=== PATIENT | female | born 1990 | race Caucasian/White ===

== ENCOUNTER 2017-10-23 18:44 | Emergency (ER) | payer OTHER, MEDICAID ==
[~2017-10-23] VITALS: Ht 175.3 cm; Wt 63.5 kg
[~2017-10-23 18:44] MED LIST: CARAFATE1 GM/10 ML PO; CELEXA10 MG PO; HYDROCODONE-AP1 EAC6 PO; ONDANSETRON HCL4 M2 PO; PRILOSEC 20 MG20 MG PO; PROTONIX40 M1 PO; TRINATE TABLET1 TAB PO; ZOFRAN ODT4 MG PO
[2017-10-23] MEDS ORDERED: MIRENA1 EACH CERVICAL (19:40)
[2017-10-23 20:11] LABS: URINE BILIRUBIN NEGATIVE (Negative); URINE BLOOD 3+ (Negative); URINE CLARITY CLOUDY; URINE COLOR YELLOW; URINE GLUCOSE-RANDOM NEGATIVE (Negative); URINE KETONES TRACE (Negative); URINE LEUKOCYTES 3+ (Negative); URINE NITRITE POSITIVE (Negative); URINE PROTEIN 2+ (Negative); URINE SPECIFIC GRAVITY 1.025 (1.005-1.030); URINE UROBILINOGEN 0.2 E.U./dl (0.2-1.0)
[2017-10-23 20:21] LABS: SQUAMOUS >10 Many /LPF (0-3); URINE WBC >25 Many /HPF (0-5)
[2017-10-23 20:22] LABS: CASTS None Seen /LPF (None Seen); CRYSTALS None Seen /LPF (None Seen); WBC CLUMPS Few (None Seen)
[2017-10-23 20:24] LABS: MUCUS 0-3 Light strn/LPF (None Seen)
[2017-10-23] MEDS ORDERED: BACTRIM DS TAB1 EACH PO (20:36)
[2017-10-23 21:05] VITALS: BP 122/69
== END 2017-10-23 21:05 | disposition home or self-care (01) ==
LOC: M.ERS 18:44
PROVIDERS: Nurse Practitioner Family
DX: N39.0 Urinary tract infection, site not specified (principal); R31.9 Hematuria, unspecified; F41.9 Anxiety disorder, unspecified; F10.99 Alcohol use, unspecified with unspecified alcohol-induced disorder; Z90.49 Acquired absence of other specified parts of digestive tract

== ENCOUNTER → 2017-10-27 | Outpatient (CLI) | payer OTHER, MEDICAID ==
[~2017-10-27] MED LIST changes: +BACTRIM DS TAB1 EACH PO; +CIPRO250 M2 PO; +IBUPROFEN 800800 MG PO; +KEFLEX500 M1 PO; +MIRENA1 EACH CERVICAL; +NORCO 5-325 TA1 EACH PO; +PYRIDIUM200 MG PO
== END ==
LOC: M.MRI 10-17 11:30
DX: K80.50 Calculus of bile duct without cholangitis or cholecystitis without obstruction (principal); Z90.49 Acquired absence of other specified parts of digestive tract

== ENCOUNTER 2017-10-29 03:20 | Emergency (ER) | payer OTHER, MEDICAID ==
[~2017-10-29] VITALS: Ht 175.3 cm; Wt 63.5 kg
[~2017-10-29 03:20] MED LIST changes: -CIPRO250 M2 PO; -IBUPROFEN 800800 MG PO; -KEFLEX500 M1 PO; -NORCO 5-325 TA1 EACH PO; -PYRIDIUM200 MG PO
[2017-10-29 03:41] LABS: URINE BILIRUBIN NEGATIVE (Negative); URINE BLOOD 3+ (Negative); URINE CLARITY CLEAR; URINE COLOR DARK YELLOW; URINE GLUCOSE-RANDOM NEGATIVE (Negative); URINE KETONES NEGATIVE (Negative); URINE PROTEIN 2+ (Negative); URINE SPECIFIC GRAVITY >= 1.030 (1.005-1.030); URINE UROBILINOGEN 0.2 E.U./dl (0.2-1.0)
[2017-10-29 03:48] LABS: URINE LEUKOCYTES-REFLEX 3+ (Negative); URINE NITRITE-REFLEX POSITIVE (Negative)
[2017-10-29 04:08] LABS: ABSOLUTE BASOPHILS 0.1 thou/uL (0.0-0.2); ABSOLUTE EOSINOPHILS 0.3 thou/uL (0.0-0.7); MCH 30.1 pg (26.0-34.0); MPV 7.9 fl. (7.2-11.1); NUCLEATED RBCS 0 /100WBC; RDW-CV 14.2 % (10.5-14.5); WBC 10.4 thou/uL (4.0-11.0)
[2017-10-29 04:10] LABS: ABSOLUTE LYMPHOCYTES 2.5 thou/uL (0.8-5.3); ABSOLUTE NEUTROPHILS 6.6 thou/uL (1.6-8.1); BASOPHILS 0.9 %; EOSINOPHILS 2.5 %; HEMOGLOBIN 12.4 gm/dL (12.0-15.0); LYMPHOCYTES 23.7 %; MCHC 33.4 g/dL (28.0-37.0); MCV 90.1 fL (80.0-100.0); MONOCYTES 9.2 %; PLATELET COUNT* 330 thou/uL (150-400); POLYS 63.7 %; RBC 4.11 mil/uL (4.20-5.00)
[2017-10-29 04:12] LABS: BACTERIA-REFLEX >30 Many /HPF (None Seen); CASTS None Seen /LPF (None Seen); CRYSTALS None Seen /LPF (None Seen); MUCUS 4-6 Moderate strn/LPF (None Seen); SQUAMOUS 0-3 Few /LPF (0-3); URINE RBC >20 Many /HPF (0-2); URINE WBC-REFLEX >25 Many /HPF (0-5); WBC CLUMPS Moderate (None Seen)
[2017-10-29 04:20] LABS: CALCIUM 8.6 mg/dL (8.5-10.1); CREATININE 0.9 mg/dL (0.6-1.3); POTASSIUM 3.8 mmol/L (3.5-5.1)
[2017-10-29 04:24] LABS: ALBUMIN 3.5 g/dL (3.4-5.0); TOTAL BILIRUBIN 0.2 mg/dL (<0.1-1.0); TOTAL PROTEIN 7.3 g/dL (6.4-8.2)
[2017-10-29] MEDS ORDERED: ZOFRAN ODT4 MG PO (06:13)
[2017-10-29] MEDS ORDERED: NORCO 5-325 TA1 EACH PO (06:13)
[2017-10-29] MEDS ORDERED: KEFLEX500 M1 PO (06:13)
[2017-10-29 06:37] VITALS: BP 118/56
== END 2017-10-29 06:46 | disposition home or self-care (01) ==
LOC: M.ERS 03:20
PROVIDERS: Emergency Medicine Emergency Medical Services
DX: N12 Tubulo-interstitial nephritis, not specified as acute or chronic (principal); F41.9 Anxiety disorder, unspecified; Z90.49 Acquired absence of other specified parts of digestive tract

== ENCOUNTER 2018-02-09 19:40 | Emergency (ER) | payer OTHER, MEDICAID ==
[~2018-02-09] VITALS: Ht 175.3 cm; Wt 63.5 kg
[~2018-02-09 19:40] MED LIST changes: +KEFLEX500 M1 PO; +NORCO 5-325 TA1 EACH PO
[2018-02-09] MEDS ORDERED: IBUPROFEN 800800 MG PO (20:43)
[2018-02-09 21:05] VITALS: BP 136/76
== END 2018-02-09 21:06 | disposition home or self-care (01) ==
LOC: M.ERS 19:40
DX: S63.591A Other specified sprain of right wrist, initial encounter (principal); W01.0XXA Fall on same level from slipping, tripping and stumbling without subsequent striking against object, initial encounter; Y93.89 Activity, other specified; Y92.89 Other specified places as the place of occurrence of the external cause; Y99.8 Other external cause status; F41.9 Anxiety disorder, unspecified

== ENCOUNTER 2018-02-23 16:40 | Emergency (ER) | payer OTHER, MEDICAID ==
[~2018-02-23] VITALS: Ht 175.3 cm; Wt 63.5 kg
[~2018-02-23 16:40] MED LIST changes: +IBUPROFEN 800800 MG PO
[2018-02-23 18:00] LABS: URINE BILIRUBIN NEGATIVE (Negative); URINE BLOOD NEGATIVE (Negative); URINE CLARITY CLEAR; URINE COLOR YELLOW; URINE GLUCOSE-RANDOM NEGATIVE (Negative); URINE KETONES NEGATIVE (Negative); URINE LEUKOCYTES-REFLEX 1+ (Negative); URINE NITRITE-REFLEX NEGATIVE (Negative); URINE PROTEIN NEGATIVE (Negative); URINE UROBILINOGEN 0.2 E.U./dl (0.2-1.0)
[2018-02-23 18:07] LABS: SQUAMOUS 4-10 Moderate /LPF (0-3)
[2018-02-23 18:08] LABS: BACTERIA-REFLEX 1-9 Few /HPF (None Seen); CASTS None Seen /LPF (None Seen); CRYSTALS None Seen /LPF (None Seen); URINE RBC None Seen /HPF (0-2); URINE WBC-REFLEX 0-5 Rare /HPF (0-5)
[2018-02-23 18:09] LABS: ABSOLUTE BASOPHILS 0.1 thou/uL (0.0-0.2); ABSOLUTE EOSINOPHILS 0.1 thou/uL (0.0-0.7); ABSOLUTE LYMPHOCYTES 1.8 thou/uL (0.8-5.3); ABSOLUTE MONOCYTES 0.5 thou/uL (0.0-1.2); ABSOLUTE NEUTROPHILS 3.6 thou/uL (1.6-8.1); BASOPHILS 1.3 %; EOSINOPHILS 2.2 %; HEMATOCRIT 38.6 % (37.0-47.0); MCH 29.9 pg (26.0-34.0); MCHC 33.6 g/dL (28.0-37.0); MCV 88.8 fL (80.0-100.0); MPV 8.2 fl. (7.2-11.1); NUCLEATED RBCS 0 /100WBC; PLATELET COUNT* 315 thou/uL (150-400); POLYS 58.5 %; RBC 4.35 mil/uL (4.20-5.00); RDW-CV 13.8 % (10.5-14.5); WBC 6.1 thou/uL (4.0-11.0)
[2018-02-23 18:16] LABS: CALCIUM 8.7 mg/dL (8.5-10.1); CREATININE 0.9 mg/dL (0.6-1.3)
[2018-02-23 18:21] LABS: ALBUMIN 3.7 g/dL (3.4-5.0); TOTAL BILIRUBIN 0.5 mg/dL (<0.1-1.0); TOTAL PROTEIN 7.6 g/dL (6.4-8.2)
[2018-02-23] MEDS ORDERED: CIPRO250 M2 PO (19:18)
[2018-02-23] MEDS ORDERED: PYRIDIUM200 MG PO (19:18)
[2018-02-23 20:00] VITALS: BP 121/71
== END 2018-02-23 20:04 | disposition home or self-care (01) ==
LOC: M.ERS 16:40
PROVIDERS: Nurse Practitioner Family
DX: R10.9 Unspecified abdominal pain (principal); R30.0 Dysuria; F41.9 Anxiety disorder, unspecified; Z90.49 Acquired absence of other specified parts of digestive tract

== ENCOUNTER 2018-10-09 22:04 | Emergency (ER) | payer OTHER, MEDICAID ==
[~2018-10-09] VITALS: Ht 175.3 cm; Wt 54.4 kg
[~2018-10-09 22:04] MED LIST changes: +CIPRO250 M2 PO; +PYRIDIUM200 MG PO
[2018-10-09 22:09] VITALS: BP 145/79
[2018-10-09 22:19] LABS: URINE BILIRUBIN NEGATIVE (Negative); URINE BLOOD 3+ (Negative); URINE CLARITY CLOUDY; URINE COLOR YELLOW; URINE GLUCOSE-RANDOM NEGATIVE (Negative); URINE KETONES NEGATIVE (Negative); URINE LEUKOCYTES-REFLEX 3+ (Negative); URINE NITRITE-REFLEX NEGATIVE (Negative); URINE PROTEIN TRACE (Negative); URINE UROBILINOGEN 0.2 E.U./dl (0.2-1.0)
[2018-10-09] MEDS ORDERED: NAPROSYN500 MG PO (22:23)
[2018-10-09] MEDS ORDERED: PHENAZOPYRIDIN200 M2 PO (22:23)
[2018-10-09] MEDS ORDERED: BACTRIM DS TAB1 EACH PO (22:23)
[2018-10-09 22:24] LABS: SQUAMOUS >10 Many /LPF (0-3)
[2018-10-09 22:25] LABS: WBC CLUMPS Few (None Seen)
[2018-10-09 22:26] LABS: MUCUS None Seen strn/LPF (None Seen)
[2018-10-09 22:27] LABS: CRYSTALS None Seen /LPF (None Seen)
[2018-10-09 22:28] LABS: CASTS None Seen /LPF (None Seen); URINE RBC 3-10 Few /HPF (0-2)
== END 2018-10-09 22:33 | disposition home or self-care (01) ==
LOC: M.ERS 22:04
PROVIDERS: Physician Assistant
DX: N39.0 Urinary tract infection, site not specified (principal); F41.9 Anxiety disorder, unspecified; Z90.49 Acquired absence of other specified parts of digestive tract; Z87.440 Personal history of urinary (tract) infections

== ENCOUNTER 2019-01-30 13:07 | Emergency (ER) | payer OTHER, MEDICAID ==
[~2019-01-30] VITALS: Ht 175.3 cm; Wt 59.0 kg
[~2019-01-30 13:07] MED LIST changes: +NAPROSYN500 MG PO; +PHENAZOPYRIDIN200 M2 PO
[2019-01-30 13:28] LABS: URINE BILIRUBIN NEGATIVE (Negative); URINE BLOOD 3+ (Negative); URINE CLARITY CLEAR; URINE COLOR YELLOW; URINE GLUCOSE-RANDOM NEGATIVE (Negative); URINE KETONES NEGATIVE (Negative); URINE LEUKOCYTES-REFLEX NEGATIVE (Negative); URINE NITRITE-REFLEX NEGATIVE (Negative); URINE PROTEIN NEGATIVE (Negative); URINE UROBILINOGEN 0.2 E.U./dl (0.2-1.0)
[2019-01-30 13:36] LABS: BACTERIA-REFLEX 1-9 Few /HPF (None Seen); CASTS None Seen /LPF (None Seen); MUCUS None Seen strn/LPF (None Seen); SQUAMOUS 4-10 Moderate /LPF (0-3); URINE WBC-REFLEX 0-5 Rare /HPF (0-5)
[2019-01-30 13:37] LABS: CRYSTALS None Seen /LPF (None Seen)
[2019-01-30 14:34] LABS: ABSOLUTE BASOPHILS 0.1 thou/uL (0.0-0.2); ABSOLUTE EOSINOPHILS 0.1 thou/uL (0.0-0.7); ABSOLUTE LYMPHOCYTES 1.1 thou/uL (0.8-5.3); ABSOLUTE MONOCYTES 0.4 thou/uL (0.0-1.2); ABSOLUTE NEUTROPHILS 3.3 thou/uL (1.6-8.1); BASOPHILS 1.1 %; EOSINOPHILS 1.7 %; HEMOGLOBIN 13.2 gm/dL (12.0-15.0); LYMPHOCYTES 23.3 %; MCH 30.6 pg (26.0-34.0); MCHC 33.8 g/dL (28.0-37.0); MCV 90.4 fL (80.0-100.0); MONOCYTES 7.4 %; MPV 7.7 fl. (7.2-11.1); NUCLEATED RBCS 0 /100WBC; PLATELET COUNT* 305 thou/uL (150-400); POLYS 66.5 %; RBC 4.31 mil/uL (4.20-5.00); RDW-CV 16.1 % (10.5-14.5); WBC 4.9 thou/uL (4.0-11.0)
[2019-01-30 14:43] LABS: APTT 26.8 Seconds (25.0-31.3); PROTIME 10.2 Seconds (9.20-11.50)
[2019-01-30 14:49] LABS: CALCIUM 9.1 mg/dL (8.5-10.1); CREATININE 0.7 mg/dL (0.6-1.3)
[2019-01-30 14:54] LABS: ALBUMIN 3.6 g/dL (3.4-5.0); TOTAL BILIRUBIN 0.6 mg/dL (<0.1-1.0); TOTAL PROTEIN 7.5 g/dL (6.4-8.2)
[2019-01-30] MEDS ORDERED: IBUPROFEN 800800 M1 PO (17:17)
[2019-01-30 17:21] VITALS: BP 143/92
== END 2019-01-30 17:24 | disposition home or self-care (01) ==
LOC: M.ERS 13:07
PROVIDERS: Nurse Practitioner Psychiatric/Mental Health
DX: T83.83XA Hemorrhage due to genitourinary prosthetic devices, implants and grafts, initial encounter (principal); F41.9 Anxiety disorder, unspecified; Z90.49 Acquired absence of other specified parts of digestive tract; F17.200 Nicotine dependence, unspecified, uncomplicated

== ENCOUNTER 2019-04-07 12:04 | Emergency (ER) | payer OTHER, MEDICAID ==
[~2019-04-07] VITALS: Ht 167.6 cm; Wt 59.0 kg
[~2019-04-07 12:04] MED LIST changes: +IBUPROFEN 800800 M1 PO
[2019-04-07 12:39] LABS: URINE BILIRUBIN NEGATIVE (Negative); URINE BLOOD 3+ (Negative); URINE CLARITY CLOUDY; URINE COLOR YELLOW; URINE GLUCOSE-RANDOM NEGATIVE (Negative); URINE KETONES NEGATIVE (Negative); URINE LEUKOCYTES-REFLEX NEGATIVE (Negative); URINE PROTEIN 1+ (Negative); URINE SPECIFIC GRAVITY 1.025 (1.005-1.030); URINE UROBILINOGEN 0.2 E.U./dl (0.2-1.0)
[2019-04-07 12:40] LABS: URINE NITRITE-REFLEX POSITIVE (Negative)
[2019-04-07 12:48] LABS: SQUAMOUS 4-10 Moderate /LPF (0-3); URINE RBC >20 Many /HPF (0-2); URINE WBC-REFLEX 0-5 Rare /HPF (0-5)
[2019-04-07 12:49] LABS: BACTERIA-REFLEX >30 Many /HPF (None Seen); CASTS None Seen /LPF (None Seen); CRYSTALS None Seen /LPF (None Seen); MUCUS 4-6 Moderate strn/LPF (None Seen)
[2019-04-07] MEDS ORDERED: IBUPROFEN 800800 MG PO (12:54)
[2019-04-07] MEDS ORDERED: AUGMENTIN 500-1 EACH PO (12:54)
[2019-04-07 13:02] VITALS: BP 125/79
== END 2019-04-07 13:03 | disposition home or self-care (01) ==
LOC: M.ERS 12:04
PROVIDERS: Personal Emergency Response Attendant
DX: N39.0 Urinary tract infection, site not specified (principal); Z30.432 Encounter for removal of intrauterine contraceptive device; F41.9 Anxiety disorder, unspecified; Z90.49 Acquired absence of other specified parts of digestive tract

== ENCOUNTER 2020-02-21 00:20 | Inpatient (IN) | payer OTHER, MEDICAID ==
[~2020-02-21] VITALS: Ht 152.4 cm; Wt 73.0 kg
--- NOTE | ~2020-02-21 | PROC ---
[address] [address] PROCEDURE REPORT Name: ANNA CHAPMAN Room: [address] IN .R.#: [id number] Admission: 02/21/20 Attend Phys: Cindy Bowles Discharge: 02/24/20 Date of : 89 Report #: [id number] THIS REPORT FOR: //name// cc: Tan Rodriguez MD, Charles F. MD ~ THIS REPORT FOR: //name// For GI report, please see the Provation report in [employer] content. By: [id number] Records Staff BRIAN /MAUREEN
[~2020-02-21 00:20] MED LIST changes: +AUGMENTIN 500-1 EACH PO
[2020-02-21 00:31] VITALS: BP 156/108
[2020-02-21] MEDS ORDERED: CLONAZEPAM 0.50.5 M1 PO (00:34)
[2020-02-21 00:38] LABS: URINE BILIRUBIN NEGATIVE (Negative); URINE BLOOD 3+ (Negative); URINE COLOR YELLOW; URINE GLUCOSE-RANDOM NEGATIVE (Negative); URINE KETONES NEGATIVE (Negative); URINE LEUKOCYTES-REFLEX 2+ (Negative); URINE NITRITE-REFLEX POSITIVE (Negative); URINE PROTEIN 1+ (Negative); URINE UROBILINOGEN 0.2 E.U./dl (0.2-1.0)
[2020-02-21 00:39] LABS: SQUAMOUS 0-3 Few /LPF (0-3); TRANSITIONAL EPITHEL CELL 0-3 Few /LPF (None Seen); URINE CLARITY CLOUDY
[2020-02-21 00:40] LABS: BACTERIA-REFLEX >30 Many /HPF (None Seen); CASTS None Seen /LPF (None Seen); CRYSTALS None Seen /LPF (None Seen); MUCUS 4-6 Moderate strn/LPF (None Seen); URINE RBC >20 Many /HPF (0-2); URINE WBC-REFLEX >25 Many /HPF (0-5); WBC CLUMPS Moderate (None Seen)
[2020-02-21 01:02] LABS: ABSOLUTE BASOPHILS 0.1 thou/uL (0.0-0.2); ABSOLUTE LYMPHOCYTES 1.3 thou/uL (0.8-5.3); ABSOLUTE MONOCYTES 0.6 thou/uL (0.0-1.2); ABSOLUTE NEUTROPHILS 4.5 thou/uL (1.6-8.1); BASOPHILS 0.9 %; EOSINOPHILS 0.4 %; HEMATOCRIT 39.1 % (37.0-47.0); HEMOGLOBIN 13.7 gm/dL (12.0-15.0); LYMPHOCYTES 19.6 %; MCH 32.6 pg (26.0-34.0); MCV 93.3 fL (80.0-100.0); MONOCYTES 9.1 %; MPV 7.7 fl. (7.2-11.1); NUCLEATED RBCS 0 /100WBC; PLATELET COUNT* 209 thou/uL (150-400); RBC 4.19 mil/uL (4.20-5.00); RDW-CV 14.5 % (10.5-14.5); WBC 6.4 thou/uL (4.0-11.0)
[2020-02-21 01:10] LABS: CALCIUM 8.4 mg/dL (8.5-10.1); CREATININE 1.1 mg/dL (0.6-1.3); POTASSIUM 3.1 mmol/L (3.5-5.1)
[2020-02-21 01:15] LABS: ALBUMIN 3.2 g/dL (3.4-5.0)
[2020-02-21 02:41] LABS: AMYLASE 65 U/L (25-115); LIPASE 742 U/L (73-393)
[2020-02-21 06:18] VITALS: BP 123/76
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
[2020-02-21 10:28] VITALS: BP 133/85
[2020-02-21 20:37] VITALS: BP 135/88
[2020-02-21 23:45] VITALS: BP 134/101
[2020-02-22] VITALS (7 sets, daily range): BP systolic 123–138; BP diastolic 76–96
[2020-02-22 03:07] LABS: HEPATITIS B SURFACE AG Negative (Negative)
[2020-02-22 05:03] LABS: CALCIUM 7.9 mg/dL (8.5-10.1); CREATININE 0.9 mg/dL (0.6-1.3); DIRECT BILIRUBIN 0.4 mg/dL (<0.1-0.3); MAGNESIUM 1.7 mg/dL (1.8-2.4); POTASSIUM 3.8 mmol/L (3.5-5.1); TOTAL PROTEIN 6.7 g/dL (6.4-8.2)
--- NOTE | 2020-02-22 08:00 | NUR ---
PT IS ABLE TO COMMUNICATE HER NEEDS TO STAFF EFFECTIVELY. CURRENT PAIN MEDICATION REGIMEN HAS BEEN ADEQUATE FOR CONTROLLING HER PAIN UP TO THIS TIME. SHE HAS BEEN NPO SINCE MIDNIGHT FOR A LIKELY EGD LATER TODAY. LFTs WERE ELEVATED, BUT DECREASING, THIS AM; LIPASE HAS INCREASED SINCE LAST CHECK AND IS ABNORMALLY HIGH; MDs ARE AWARE.
--- NOTE | 2020-02-22 13:13 | NUR ---
Pt is A&O. Resides at home with her BF and 2 kids. Active and independent. No DME. No hx of HH or SNF. Goal is home at dc, no needs anticipated.
[2020-02-23 04:39] LABS: ALBUMIN 2.8 g/dL (3.4-5.0); CALCIUM 8.1 mg/dL (8.5-10.1); CREATININE 0.8 mg/dL (0.6-1.3); MAGNESIUM 2.2 mg/dL (1.8-2.4); POTASSIUM 3.6 mmol/L (3.5-5.1); TOTAL BILIRUBIN 0.5 mg/dL (<0.1-1.0); TOTAL PROTEIN 6.5 g/dL (6.4-8.2)
[2020-02-23 07:30] VITALS: BP 122/82
[2020-02-23 16:00] VITALS: BP 128/88
[2020-02-23 20:00] VITALS: BP 139/96
[2020-02-23] MEDS ORDERED: LISINOPRIL2.5 MG PO (20:50)
[2020-02-23] MEDS ORDERED: ZYRTEC10 M5 PO (20:51)
[2020-02-23] MEDS ORDERED: VITAMIN B-1100 M2 (20:53)
[2020-02-23] MEDS ORDERED: NAPROXEN250 MG PO (20:53)
[2020-02-23 23:52] VITALS: BP 144/91
[2020-02-24 04:00] VITALS: BP 127/82
[2020-02-24 04:37] LABS: ALBUMIN 2.9 g/dL (3.4-5.0); CALCIUM 8.5 mg/dL (8.5-10.1); CREATININE 0.8 mg/dL (0.6-1.3); MAGNESIUM 2.1 mg/dL (1.8-2.4); POTASSIUM 3.6 mmol/L (3.5-5.1); TOTAL BILIRUBIN 0.5 mg/dL (<0.1-1.0); TOTAL PROTEIN 6.8 g/dL (6.4-8.2)
--- NOTE | 2020-02-24 07:10 | NUR ---
CHANGE OF SHIFT BEDSIDE REPORT GIVEN PATIENT SEEN AT BEDSIDE IN BED WATCHING TV ASSUMED PATIENT CARE
[2020-02-24 08:00] VITALS: BP 130/88
[2020-02-24] MEDS ORDERED: NORCO 5-325 TA1 EAC1 PO (09:03)
[2020-02-24] MEDS ORDERED: CIPRO250 M2 PO (09:03)
[2020-02-24] MEDS ORDERED: OMEPRAZOLE40 MG PO (09:03)
[2020-02-24 10:38] VITALS: BP 130/88
--- NOTE | 2020-02-24 10:55 | NUR ---
DISCHARGE TO HOME ALL DISCHARGE INSTRUCTIONS GIVEN, ACKNOWLEDGED, SIGNED PAPAERS GIVEN IV AND HEART MONITOR REMOVED PERSONAL BELONGIGNS RETURNED ESCORTED OUT AMBULATORY TO WAITING CAR
--- NOTE | 2020-02-25 15:08 | PATH ---
[address] [address] PATHOLOGY RPT PROCEDURE Name: ANNA CHAPMAN Room: [address] IN .R.#: [id number] Admission: 02/21/20 Date of : 89 Discharge: 02/24/20 Report #: [id number] Path Case #: [id number] [facility] Accession Number: [id number] . 01 Material submitted: . stomach - GASTRIC BIOPSIES . 01 Clinical history: . Acute pancreatitis with liver dysfunction Rule out H.pylori . 02 Diagnosis: Gastric biopsies: - Mild nonspecific chronic gastritis, negative for Helicobacter pylori organisms and dysplasia. (YESENIA:pit 02/25/2020) . Special stain: H. pylori immuno QTP 02/25/2020 1042 Local . 02 Electronically signed: . Abner Tatum MD, Pathologist NPI- [id number] . 01 Gross description: . The specimen is received in formalin, labeled "MainorAnna, gastric biopsies rule out H. pylori" and consists of multiple fragments of ramirez tissue measuring 1.8 x 0.2 x 0.2 cm in aggregate which are entirely submitted in A1. (RAZ; 02/22/2020) JFQ/JFQ 02/22/2020 2033 Local . 02 Pathologist provided ICD-10: K29.50 . 02 CPT . 722167, [id number] Specimen Comment: A courtesy copy of this report has been sent to [phone], [phone] Specimen Comment: [phone], Specimen Comment: Report sent to ,DR RHOADES / DR WEAVER Specimen Comment: A duplicate report has been generated due to demographic updates. Performed at: [address], [place] [id number] MD Jude Winter MD Phone: [phone] Performed at: [address] [address] PATHOLOGY RPT PROCEDURE Name: ANNA CHAPMAN Room: [address] IN [facility]#: [id number] Admission: 02/21/20 Date of : 89 Discharge: 02/24/20 Report #: [id number] Path Case #: [id number] [address] [id number] MD Abner Tatum MD Phone: [phone]
--- NOTE | 2020-03-07 13:50 | CON ---
[address] [address] CONSULTATION Name: ANNA CHAPMAN Room: [address] IN ..#: [id number] Admission: 02/21/20 Attend Phys: Cindy Bowles Discharge: 02/24/20 Date of : 89 Report #: [id number] THIS REPORT FOR: //name// cc: Tan Rodriguez MD, Charles F. MD ~ THIS REPORT FOR: //name// CC: Tan Astudillo DATE OF SERVICE: 02/21/2020 REASON FOR CONSULTATION: Epigastric pain. HISTORY OF PRESENT ILLNESS: This is a 29-year-old female with history of intermittent epigastric pain, which usually worsens at night. The patient reports that the pain comes when she lies down at night. She also admits to drinking pretty heavily for the past several months. She was recently on a 4-day alcohol binge. Since hospitalization, she was found to have elevated LFTs consistent with alcoholic hepatitis and mildly elevated lipase of 740. She also has had a CT of abdomen and pelvis, which showed that she may have early signs of pancreatitis. She denies any lower GI symptoms as she denies constipation, diarrhea or lower abdominal pain. She has history of cholecystectomy so her stools are usually somewhat loose. PAST MEDICAL HISTORY: Significant for history of gallstones, status post cholecystectomy, recurrent UTI, anxiety disorder and alcohol abuse. ALLERGIES: No known drug allergy. MEDICATIONS: Please refer to ROHAN. Note that the patient has been taking ibuprofen for pain. SOCIAL HISTORY: The patient has been drinking heavily. She denies tobaccoism. FAMILY HISTORY: Noncontributory. PHYSICAL EXAMINATION: VITAL SIGNS: Reveals blood pressure of 133/85, respiration 18, pulse 74, temperature 96.7. LUNGS: Clear. CARDIOVASCULAR: Regular. ABDOMEN: Soft, nontender, nondistended[place] [address] CONSULTATION Name: ANNA CHAPMAN Room: [address]#: [id number] Admission: 02/21/20 Attend Phys: Cindy Bowles Discharge: 02/24/20 Date of : 89 Report #: [id number] LABORATORY DATA: Reveal sodium of 136, potassium 3.1, BUN is 6, creatinine 1.1, glucose 101, AST is 173, ALT 122 with alkaline phosphatase of 83 and lipase of 742. Viral hepatitis serology has been obtained and pending. WBC is 6.4, hemoglobin 13.7 with platelet of 209. The patient also has urinary tract infection for which she has been placed on antibiotics. Labs reveal mild subtle inflammatory changes surrounding the pancreatic head, which may be an early sign of pancreatitis. Evidence of previous cholecystectomy and absence of gallbladder. Fatty liver noted. ASSESSMENT AND PLAN: A patient with mild evidence of pancreatitis, which we will continue to monitor lipase. Her LFTs are elevated due to alcoholic hepatitis and alcoholic fatty liver disease. Since the patient has recurrent epigastric pain, which worsens during the night when she lies down, she may have reflux. She also admits to taking ibuprofen regularly, so this may have caused her to develop gastroduodenal ulcer. We will schedule her for upper endoscopy tomorrow. I will allow her to have full liquid diet and check her lipase and LFTs in the morning. <ELECTRONICALLY SIGNED> By: Cheng Winters MD 03/07/20 1350 1151 [id number] Winters MD /nt
== END 2020-02-24 10:55 | disposition home or self-care (01) | DRG 440 ==
LOC: M.ERS 00:20 → M.TBA-ER 02:55 → M.2W 10:17
PROVIDERS: Internal Medicine; Personal Emergency Response Attendant; ADMIT Internal Medicine; ATTEND Internal Medicine
PROC: 0DB68ZX Excision of Stomach, Via Natural or Artificial Opening Endoscopic, Diagnostic (ICD-10-PCS; principal; 2020-02-22)
DX: K85.20 Alcohol induced acute pancreatitis without necrosis or infection (principal); F41.1 Generalized anxiety disorder; E87.6 Hypokalemia; K70.10 Alcoholic hepatitis without ascites; N30.90 Cystitis, unspecified without hematuria; F32.9 Major depressive disorder, single episode, unspecified; K21.0 Gastro-esophageal reflux disease with esophagitis; Z90.49 Acquired absence of other specified parts of digestive tract; Z79.899 Other long term (current) drug therapy

== ENCOUNTER 2021-01-02 14:51 | Emergency (ER) | payer OTHER, MEDICAID ==
[~2021-01-02] VITALS: Ht 177.8 cm; Wt 59.0 kg
[~2021-01-02 14:51] MED LIST changes: +CLONAZEPAM 0.50.5 M1 PO; +LISINOPRIL2.5 MG PO; +NAPROXEN250 MG PO; +NORCO 5-325 TA1 EAC1 PO; +OMEPRAZOLE40 MG PO; +VITAMIN B-1100 M2; +ZYRTEC10 M5 PO
[2021-01-02 15:25] LABS: ABSOLUTE BASOPHILS 0.1 thou/uL (0.0-0.2); ABSOLUTE LYMPHOCYTES 0.8 thou/uL (0.8-5.3); ABSOLUTE MONOCYTES 0.5 thou/uL (0.0-1.2); ABSOLUTE NEUTROPHILS 4.8 thou/uL (1.6-8.1); BASOPHILS 0.9 %; EOSINOPHILS 0.5 %; HEMATOCRIT 41.9 % (37.0-47.0); LYMPHOCYTES 12.9 %; MCH 32.1 pg (26.0-34.0); MCHC 33.4 g/dL (28.0-37.0); MCV 96.2 fL (80.0-100.0); MONOCYTES 8.2 %; MPV 7.9 fl. (7.2-11.1); NUCLEATED RBCS 0 /100WBC; PLATELET COUNT* 227 thou/uL (150-400); POLYS 77.5 %; RBC 4.36 mil/uL (4.20-5.00); RDW-CV 14.7 % (10.5-14.5); WBC 6.2 thou/uL (4.0-11.0)
[2021-01-02 15:32] LABS: CALCIUM 9.5 mg/dL (8.5-10.1); CREATININE 0.9 mg/dL (0.6-1.3); POTASSIUM 3.7 mmol/L (3.5-5.1)
[2021-01-02 15:36] LABS: ALBUMIN 3.5 g/dL (3.4-5.0); TOTAL BILIRUBIN 1.3 mg/dL (<0.1-1.0); TOTAL PROTEIN 7.7 g/dL (6.4-8.2)
[2021-01-02 16:26] LABS: URINE BLOOD 2+ (Negative); URINE COLOR YELLOW; URINE GLUCOSE-RANDOM NEGATIVE (Negative); URINE KETONES NEGATIVE (Negative); URINE PROTEIN 1+ (Negative); URINE SPECIFIC GRAVITY 1.015 (1.005-1.030)
[2021-01-02 16:27] LABS: ICTOTEST (BILI CONFIRMATORY) Negative (Negative); URINE BILIRUBIN 1+ (Negative); URINE CLARITY CLOUDY; URINE LEUKOCYTES-REFLEX 3+ (Negative); URINE NITRITE-REFLEX POSITIVE (Negative)
[2021-01-02 16:32] LABS: BACTERIA-REFLEX >30 Many /HPF (None Seen); CASTS None Seen /LPF (None Seen); CRYSTALS None Seen /LPF (None Seen); SQUAMOUS >10 Many /LPF (0-3); URINE RBC >20 Many /HPF (0-2); URINE WBC-REFLEX >25 Many /HPF (0-5)
[2021-01-02] MEDS ORDERED: XANAX 0.5 MG0.5 MG PO (18:01)
[2021-01-02] MEDS ORDERED: VOLTAREN 50MG T50 MG PO (18:01)
[2021-01-02] MEDS ORDERED: PEPCID20 MG PO (18:01)
[2021-01-02] MEDS ORDERED: CEPHALEXIN500 MG PO (18:02)
[2021-01-02 19:14] VITALS: BP 140/82
== END 2021-01-02 19:14 | disposition home or self-care (01) ==
LOC: M.ERS 14:51
PROVIDERS: Physician Assistant
DX: N39.0 Urinary tract infection, site not specified (principal); F10.20 Alcohol dependence, uncomplicated; Y90.9 Presence of alcohol in blood, level not specified; R94.5 Abnormal results of liver function studies; Z90.49 Acquired absence of other specified parts of digestive tract; Z87.440 Personal history of urinary (tract) infections

== ENCOUNTER 2021-05-23 10:51 | Emergency (ER) | payer OTHER, MEDICAID ==
[~2021-05-23] VITALS: Ht 175.3 cm; Wt 59.0 kg
[~2021-05-23 10:51] MED LIST changes: +CEPHALEXIN500 MG PO; +PEPCID20 MG PO; +VOLTAREN 50MG T50 MG PO; +XANAX 0.5 MG0.5 MG PO
[2021-05-23 12:55] LABS: URINE BLOOD NEGATIVE (Negative); URINE CLARITY CLEAR; URINE COLOR YELLOW; URINE GLUCOSE-RANDOM NEGATIVE (Negative); URINE KETONES TRACE (Negative); URINE PROTEIN NEGATIVE (Negative); URINE SPECIFIC GRAVITY 1.025 (1.005-1.030)
[2021-05-23 13:09] LABS: URINE BILIRUBIN 1+ (Negative); URINE LEUKOCYTES-REFLEX 2+ (Negative); URINE NITRITE-REFLEX POSITIVE (Negative)
[2021-05-23 13:14] LABS: ICTOTEST (BILI CONFIRMATORY) Negative (Negative)
[2021-05-23 13:16] LABS: BACTERIA-REFLEX >30 Many /HPF (None Seen); CASTS None Seen /LPF (None Seen); MUCUS 4-6 Moderate strn/LPF (None Seen); SQUAMOUS >10 Many /LPF (0-3); URINE WBC-REFLEX >25 Many /HPF (0-5)
[2021-05-23 13:17] LABS: CALCIUM OXALATE 0-3 Few /LPF (None Seen)
[2021-05-23 13:18] LABS: URINE RBC None Seen /HPF (0-2)
[2021-05-23] MEDS ORDERED: IBUPROFEN 800800 M1 PO (13:38)
[2021-05-23] MEDS ORDERED: MACROBID 100 M100 M2 PO (13:38)
[2021-05-23] MEDS ORDERED: NORCO5 PO (14:32)
[2021-05-23 14:49] VITALS: BP 139/93
== END 2021-05-23 14:50 | disposition home or self-care (01) ==
LOC: M.ERS 10:51
PROVIDERS: Nurse Practitioner Family
DX: S92.351A Displaced fracture of fifth metatarsal bone, right foot, initial encounter for closed fracture (principal); W20.8XXA Other cause of strike by thrown, projected or falling object, initial encounter; Y93.89 Activity, other specified; Y92.89 Other specified places as the place of occurrence of the external cause; Y99.8 Other external cause status

== ENCOUNTER 2021-07-06 08:48 | Emergency (ER) | payer OTHER, MEDICAID ==
[~2021-07-06] VITALS: Ht 175.3 cm; Wt 59.0 kg
[~2021-07-06 08:48] MED LIST changes: +MACROBID 100 M100 M2 PO; +NORCO5 PO
[2021-07-06 10:23] LABS: URINE BILIRUBIN 1+ (Negative); URINE BLOOD NEGATIVE (Negative); URINE CLARITY TURBID; URINE COLOR BROWN; URINE GLUCOSE-RANDOM NEGATIVE (Negative); URINE KETONES NEGATIVE (Negative); URINE LEUKOCYTES-REFLEX NEGATIVE (Negative); URINE NITRITE-REFLEX NEGATIVE (Negative); URINE PROTEIN 1+ (Negative); URINE SPECIFIC GRAVITY >= 1.030 (1.005-1.030); URINE UROBILINOGEN 0.2 E.U./dl (0.2-1.0)
[2021-07-06 10:25] LABS: ICTOTEST (BILI CONFIRMATORY) Negative (Negative)
[2021-07-06 10:28] LABS: HEMOGLOBIN 13.7 gm/dL (12.0-15.0); MCH 32.6 pg (26.0-34.0); MCHC 33.4 g/dL (28.0-37.0); MCV 97.5 fL (80.0-100.0); MPV 7.6 fl. (7.2-11.1); NUCLEATED RBCS 0 /100WBC; PLATELET COUNT* 202 thou/uL (150-400); RDW-CV 14.7 % (10.5-14.5); WBC 9.1 thou/uL (4.0-11.0)
[2021-07-06 10:37] LABS: SQUAMOUS NONE SEEN /LPF (0-3)
[2021-07-06 10:38] LABS: AMORPHOUS URATES Many /LPF (None Seen); BACTERIA-REFLEX None Seen /HPF (None Seen); CASTS None Seen /LPF (None Seen); CRYSTALS None Seen /LPF (None Seen); MUCUS None Seen strn/LPF (None Seen); URINE RBC None Seen /HPF (0-2); URINE WBC-REFLEX 6-15 Few /HPF (0-5)
[2021-07-06 11:16] LABS: ABSOLUTE LYMPHOCYTES 0.7 thou/uL (0.8-5.3); ABSOLUTE MONOCYTES 0.4 thou/uL (0.0-1.2); PLATELET ESTIMATE ADEQUATE
[2021-07-06 11:26] LABS: CALCIUM 8.3 mg/dL (8.5-10.1)
[2021-07-06 11:28] LABS: POTASSIUM 2.6 mmol/L (3.5-5.1)
[2021-07-06 11:30] LABS: ALBUMIN 2.9 g/dL (3.4-5.0); TOTAL BILIRUBIN 0.5 mg/dL (<0.1-1.0); TOTAL PROTEIN 7.2 g/dL (6.4-8.2)
[2021-07-06] MEDS ORDERED: ZOFRAN ODT4 MG DISSOLVE (17:14)
[2021-07-06] MEDS ORDERED: BENTYL 10 MG CA10 M1 PO (17:14)
[2021-07-06 17:24] VITALS: BP 125/87
== END 2021-07-06 17:25 | disposition home or self-care (01) ==
LOC: M.ERS 08:48
PROVIDERS: Emergency Medicine Emergency Medical Services
DX: R11.2 Nausea with vomiting, unspecified (principal); Z20.822 Contact with and (suspected) exposure to COVID-19; R10.9 Unspecified abdominal pain; R19.7 Diarrhea, unspecified; E87.6 Hypokalemia; F41.9 Anxiety disorder, unspecified; Z90.89 Acquired absence of other organs